=== PATIENT | male | born 1965 | race Caucasian/White ===

== ENCOUNTER 2019-10-30 17:25 | Emergency (ER) | payer OTHER, SELFPAY ==
--- NOTE | ~2019-10-30 | XR_ITS ---
EXAMINATION: XR chest 1V portable DATE: 10/30/2019 18:18 INDICATION: Chest pain. TECHNIQUE: A single frontal view of the chest was obtained on 2 radiographs. COMPARISON: None. FINDINGS: The chest demonstrates clear lungs without pneumonia, pleural effusion, or pneumothorax. Th e heart size is normal. IMPRESSION: 1. No acute cardiopulmonary disease. Reviewed, dictated and finalized at location A.
--- NOTE | 2019-10-30 17:27 | ECG_ITS ---
Measurements Intervals [place] Rate: 77 P: 64 DE: 176 QRS: 61 QRSD: 88 T: 46 QT: 356 QTc: 404 Interpretive Statements SINUS RHYTHM NORMAL ECG Electronically Signed On 10-31-2019 7:17:12 CDT by Solis Otero D.O.
[2019-10-30 17:29] VITALS: BP 148/98; PULSE 94; RESP 14; TEMP 37.1; O2SAT 100
--- NOTE | 2019-10-30 17:44 | ED.CHESTPAIN ---
HPI - Chest Pain General Chief Complaint: Chest Pain Stated Complaint: CHEST PAIN Time Seen by Provider: 10/30/19 17:35 Source: patient Mode of arrival: ambulatory Limitations: no limitations History of Present Illness HPI narrative: A 54 y/o male pt presents to the ED, with c/o sharp/stabbing mid-sternal intermittent CP since September (1 month). Pt notes having CP accompanied with mild SOB a few times per week and states that the episodes last for a couple of seconds are sharp and stabbing and then will instantly resolved. He states that he was vacuuming the stairs today and started to notice the episodes of CP and SOB occurring more frequently and decided to come to the ED. Pt denies any alleviating or aggravating factors. He denies fever, cough, or N/V/D. 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 He denies any pain in the ED and notes taking Aspirin x 81 mg daily.. Patient also notes that he was around his son approximately 7 days ago helping to move and his son tested positive for covid 19 days ago. The patient denies having cough MD complaint: chest pain Pertinent past history: other (Afib) Onset (ago): month(s) (1) Timing of current episode: episodic Pain location: other (midsternal) Quality: sharp (stabbing) Relieving factors: nothing Exacerbating factors: nothing Associated symptoms: dyspnea (mild) Treatment prior to arrival: aspirin (x 81 mg) Related Data Home Medications Medication Instructions Recorded Confirmed amitriptyline 10/30/19 aspirin [Adult Aspirin Regimen] 10/30/19 pravastatin 10/30/19 sumatriptan succinate mg PO 10/30/19 Allergies Allergy/AdvReac Type Severity Reaction Status Date / Time No Known Allergies Allergy Verified 10/30/19 17:34 Review of Systems Review of Systems: All systems reviewed & are unremarkable except as noted in HPI and below Constitutional: Constitutional: Denies fever(s) Cardiovascular: Cardiovascular: Reports chest pain (intermittent midsternal sharp/stabbing) Respiratory: Respiratory: Denies cough and Reports dyspnea (mild, intermittent) Gastrointestinal: Gastrointestinal: Denies diarrhea, Denies nausea and Denies vomiting [facility] Past Medical History Medical History (Updated 10/30/19 @ 21:16 by Chapito Lowe, DO) History of atrial fibrillation Hypercholesteremia Social History Social History (Updated 10/30/19 @ 18:58 by Judson Sweet, [facility] [place]) Smoking status: Never smoker Comments Atrial fibrillation ablation Exam Narrative: Exam Narrative: APPEARANCE: No acute distress, nontoxic, resting in bed EYES: EOMI HEENT: Normocephalic, atraumatic, OMM RESPIRATORY: No respiratory distress Clear to auscultation bilaterally with no rhonchi wheezing or rales. CARDIOVASCULAR: Regular rate and rhythm without murmurs rubs or gallops. ABDOMINAL: Soft, nontender, nondistended, no rebound or guarding MUSCULOSKELETAl: Moves all extremities. No clubbing, cyanosis or edema. NEURO: Awake and alert. Following commands, speech normal, no focal deficits SKIN:: Warm, dry. No rashes lesions or abrasions PSYCHIATRIC: Normal affect/mood, Course Course Emergency Course: Patient said no chest pain while in ED Discussed with patient that since he was around + he should be himself continue for 14 days. The patient has normal vital signs in the ED 700% on room air is negative chest x-ray and feel the patient is suitable for discharge Discussed with patient results of workup and diagnosis. Discussed need for follow-up with primary care, proper use of medication, and reasons to return to the emergency department. Patient understands and agrees to current treatment plan Vital Signs Vital signs: Vital Signs Temperature 98.8 F 10/30/19 17:29 Pulse Rate 94 10/30/19 17:29 Respiratory Rate 14 10/30/19 17:29 Blood Pressure 148/98 H 10/30/19 17:29 Pulse Oximetry 100 10/30/19 17:29 Te
[2019-10-30 17:49] LABS: Basophils Percent Auto 0.3 % (0.2-1.2); Eosinophils Absolute Auto 0.1 K/mm3 (0-0.3); Eosinophils Percent Auto 1.2 % (0-4.4); Hematocrit 46.7 % (42.0-52.0); Hemoglobin 15.7 g/dL (14.0-18.0); Immature Granulocyte Absolute 0.02 K/mm3 (0.00-0.031); Immature Granulocyte Percent A 0.3 % (0-0.5); Lymphocytes Absolute Auto 0.94 K/mm3 (0.9-3.2); Lymphocytes Percent Auto 16.2 % (18.3-44.2); Mean Corpuscular HGB Conc 33.6 g/dl (32-36); Mean Corpuscular Hemoglobin 29.6 pg (26-34); Mean Corpuscular Volume 87.9 fl (80-100); Mean Platelet Volume 10.2 fl (7.4-10.4); Monocytes Absolute Auto 0.5 K/mm3 (0.1-0.6); Monocytes Percent Auto 8.4 % (2.6-8.5); Neutrophils Absolute Auto 4.3 K/mm3 (1.3-6.7); Neutrophils Percent Auto 73.6 % (45.5-73.1); Platelet Count Result 198 k/mm3 (150-375); Red Blood Count 5.31 M/mm3 (4.6-6.20); Red Cell Distribution Width 12.6 % (11.5-14.5); White Blood Count 5.8 K/mm3 (4.5-10.0)
[2019-10-30 17:59] LABS: Prothrombin Time 12.5 Seconds (11.1-14.7)
[2019-10-30 18:00] LABS: Blood Urea Nitrogen 22 mg/dL (9-20); Calcium 8.9 mg/dL (8.4-10.2); Carbon Dioxide 26 mmol/L (22-30); Chloride 102 mmol/L (98-107); Estimated CRCL calculation 113 ml/min; Estimated Glomerular Filt Rate > 60; Glucose 99 mg/dL (75-110); Partial Thromboplastin Time 25.2 SECONDS (22.3-36.8); Potassium 3.9 mmol/L (3.4-5.0); Sodium 138 mmol/L (137-145)
[2019-10-30 18:10] LABS: D Dimer 0.16 ug/mL (<0.48)
[2019-10-30 18:12] LABS: Troponin I < 0.012 ng/mL (0.000-0.034)
[2019-10-30 18:17] VITALS: BP 128/84; PULSE 77; RESP 13; O2SAT 100
[2019-10-30] MEDS: ASPIRIN 81 MG CHEWABLE TABLET 324 MG PO (18:17)
[2019-10-30 21:04] LABS: Troponin I < 0.012 ng/mL (0.000-0.034)
[2019-10-30 21:36] VITALS: BP 117/85; PULSE 74; RESP 17; O2SAT 99
== END 2019-10-30 21:37 | disposition home or self-care (01) ==
PROVIDERS: Emergency Medicine; Emergency Provider Emergency Medicine
DX: R07.89 Other chest pain (principal); I48.91 Unspecified atrial fibrillation; E78.00 Pure hypercholesterolemia, unspecified; Z79.82 Long term (current) use of aspirin
CPT/HCPCS: 36415; 71045; 80048; 84484; 85025; 85380; 85610; 85730; 93005; 99284; A9270

== ENCOUNTER 2022-03-17 02:11 | Day surgery (SDC) | payer OTHER, SELFPAY ==
[2022-03-14 14:09] VITALS: BMI 26.3
[2022-03-17] VITALS (11 sets, daily range): BP systolic 100–139; BP diastolic 74–101; PULSE 59–98; RESP 12–16; TEMP 36.8; O2SAT 96–100; BMI 25.6
--- NOTE | 2022-03-17 08:00 | ECG_ITS ---
Measurements Intervals [place] Rate: 60 P: 38 NV: 195 QRS: 71 QRSD: 92 T: 57 QT: 426 QTc: 427 Interpretive Statements SINUS RHYTHM WITH OCCASIONAL SUPRAVENTRICULAR PREMATURE COMPLEXES COMPARED TO ECG 03/17/2022 08:57:30 SINUS RHYTHM NOW PRESENT Electronically Signed On 03-17-2022 14:05:11 CDT by David Aponte M.D.
--- NOTE | 2022-03-17 08:30 | ECG_ITS ---
Measurements Intervals [place] Rate: 94 P: [place]: 0 QRS: 53 QRSD: 87 T: 48 QT: 356 QTc: 445 Interpretive Statements ATRIAL FIBRILLATION ABNORMAL RHYTHM ECG COMPARED TO ECG 10/30/2019 17:33:50 ATRIAL FIBRILLATION REPLACES SINUS RHYTHM Electronically Signed On 03-17-2022 14:01:05 CDT by David Aponte M.D.
[2022-03-17 09:29] LABS: Anion Gap 6 mmol/L (8-16); Blood Urea Nitrogen 21 mg/dL (9-20); Calcium 8.6 mg/dL (8.4-10.2); Carbon Dioxide 28 mmol/L (22-30); Chloride 107 mmol/L (98-107); Estimated CRCL calculation 88 ml/min; Estimated Glomerular Filt Rate > 60; Glucose 93 mg/dL (65-110); Potassium 3.8 mmol/L (3.4-5.0); Sodium 141 mmol/L (137-145)
--- NOTE | 2022-03-17 10:43 | WPDMODSED ---
Moderate Sedation Note-Pt Data Patient Data Diagnosis: Atrial fibrillation Present Complaint: Atrial fibrillation Procedure to be performed/Plan: Multiplanar transesophageal echocardiography with heart color-flow and pulse-wave Doppler Electrocardioversion Agitated saline study Moderate sedation Allergies Allergy/AdvReac Type Severity Reaction Status Date / Time No Known Allergies Allergy Verified 03/17/22 09:15 Home Medications Medication Instructions Recorded Confirmed Type amitriptyline 25 mg tablet 25 mg PO DAILY 10/30/19 03/14/22 History aspirin 81 mg tablet,delayed 10/30/19 History release (Adult Aspirin Regimen) pravastatin 40 mg tablet 40 mg PO DAILY 10/30/19 03/14/22 History sumatriptan succinate 100 mg 100 mg PO PRN 10/30/19 03/14/22 History tablet (Imitrex) metoprolol succinate 50 mg 50 mg PO DAILY 03/14/22 03/14/22 History tablet,extended release 24 hr rivaroxaban 20 mg tablet (Xarelto) 20 mg PO DAILY 03/14/22 03/17/22 History Current Medications: Active Medications Fentanyl Citrate (Fentanyl Citrate Inj (*Crx) 100 Mcg/2 Ml Vial) 100 mcg IV PUSH ONCE PRN PRN Reason: Cardioversion/HEYDI Sodium Chloride (Normal Saline Iv) 1,000 mls @ 30 mls/hr IV CONT .Q24H GITA Midazolam HCl (Midazolam Hcl (*Crx) 2 Mg/2 Ml Vial) 2 mg IV PUSH Q5M PRN PRN Reason: Cardioversion/HEYDI Sedation/Anesthesia: No previous sedation/anesthesia problems (including family history). [facility] Past Medical History Medical History History of atrial fibrillation Hypercholesteremia Social History Social History Smoking status: Former smoker Alcohol intake: current Drinks per week: 4 Substance use type: does not use Living arrangements: with family Spiritual care concerns: No Mod Sed Physical Exam Physical Exam Pre Procedural Exam: Normal: Appearance, Eyes, Ears, Nose, Neck, Throat, Airway, Lungs, Heart Size, Heart Rate, Neuro Exam, Abdomen, Extremities and Skin and Variation: Heart Rhythm (Irregular irregular) Hours since solid foods: 12 Hours since liquid intake: 12 Mallampati Classification: class II Internal Medicine - PN: Obj Da Vital Signs Vital Signs: Vital Signs - 24 hr 03/17/22 09:16 Temperature 36.8 C Pulse Rate 88 Respiratory Rate 14 Blood Pressure 127/87 Pulse Oximetry 100 Oxygen Delivery Room Air Meds/Results Medications: Active Medications Generic Name Dose Route Start Last Admin Trade Name Freq PRN Reason Stop Dose Admin Fentanyl Citrate 100 mcg 03/17/22 08:00 Fentanyl Citrate Inj (*Crx) 100 Mcg/2 Ml Vial IV PUSH ONCE PRN Cardioversion/HEYDI Sodium Chloride 1,000 mls @ 30 mls/hr 03/14/22 14:15 Normal Saline Iv IV CONT .Q24H GITA Midazolam HCl 2 mg 03/14/22 14:14 Midazolam Hcl (*Crx) 2 Mg/2 Ml Vial IV PUSH Q5M PRN Cardioversion/HEYDI Labs CBC & Chem 7: 03/17/22 09:12 Labs: Laboratory Results - last 24 hr 03/17/22 09:12 Sodium 141 Potassium 3.8 Chloride 107 Carbon Dioxide 28 Anion Gap 6 L BUN 21 H Creatinine 1.00 Estim Creat Clear Calc 88 Estimated GFR > 60 Glucose 93 Calcium 8.6 Magnesium 2.0 ASA Classification/Sedation ASA Classification/Sedation ASA Class: II Emergent: No Risks: Risks, benefits and alternatives explained and patient/family accepted plan for sedation. Patient re-evaluated immediately prior to sedation.
--- NOTE | 2022-03-17 11:15 | WPDTECDV ---
HEYDI with Cardioversion Date of procedure: 03/17/22 Procedure Type: 1. Multiplanar transesophageal echocardiography with color flow and pulse wave Doppler 2. Agitated saline study 3. Electrical cardioversion 4. Moderate sedation Diagnosis: Atrial fibrillation Indications: Atrial fibrillation Description of Procedure: After discussing risks, benefits alternatives of procedure patient agreeable via verbal and written informed consent. Risks discussed included soft tissue rupture perforation, , adverse reaction to anesthesia, stroke, bleeding, pain, infection, skin irritation or burn. After establishing continuous telemetry monitoring, pulse oxygenation and serial blood pressure assessments, time-out was taken and procedure started. Procedure start time 10:54 a.m. Procedure stop time 11:09 a.m. Medications were administered patient was monitored by Sara elizabeth RN Hurricaine spray to the hypopharynx x2 Complications: None Blood loss: Sedation: Benzocaine spray as above. A total 4 mg of Versed and 150 mcg of fentanyl in divided dosages. Findings: HEYDI: Normal left ventricular size and function ejection fraction around 55%. Normal mitral valve mild mitral regurgitation. Normal tricuspid valve with mild tricuspid regurgitation. Normal pulmonic valve with mild pulmonic insufficiency. Normal aortic valve with trivial aortic insufficiency. Mild left atrial enlargement. Normal right atrial size. Normal right ventricular size and function. Aortic root measured 3.7 cm at the sinus of Valsalva. No pericardial effusion. Atrial septum was intact without agitated saline or color flow evidence of shunting. No pericardial effusion. There is minimal atherosclerotic aortic disease. Left atrial appendage is free of mass or thrombus was pulse-wave velocities of up to 100 centimeters/second. Cardioversion: After adequate sedation again was confirmed, 175 joules of synchronized biphasic energy was used and converted atrial fibrillation to sinus rhythm. Conclusion: 1. Normal left ventricular size and function with ejection fraction around 55% 2. Mild left atrial enlargement 3. Mild tricuspid, mitral and pulmonic insufficiency 4. Left atrial appendage is without thrombus 4. Intact atrial septum 5. Successful electrical cardioversion converting atrial fibrillation to sinus rhythm using wants and 5 joules of synchronized biphasic energy 6. Moderate sedation
== END 2022-03-17 13:06 | disposition home or self-care (01) ==
PROVIDERS: Visit Provider Internal Medicine Cardiovascular Disease
PROC: (CPT 93312; principal; 2022-03-17 10:00)
PROC: 5A2204Z Restoration of Cardiac Rhythm, Single (ICD-10-PCS; 2022-03-17 10:00)
DX: I48.0 Paroxysmal atrial fibrillation (principal); I08.1 Rheumatic disorders of both mitral and tricuspid valves; E78.5 Hyperlipidemia, unspecified
CPT/HCPCS: 36415; 80048; 83735; 92960; 93312; 93320; 93325; J2250; J3010; J7030